=== PATIENT | male | born 1980 | race Caucasian/White ===

== ENCOUNTER → 2018-06-06 | Outpatient (CLI) | payer BC ==
--- NOTE | 2018-06-06 09:11 | CT ---
EXAMINATION TYPE: CT brain wo/w con DATE OF EXAM: 06/06/2018 COMPARISON: None HISTORY: 38-year-old male TIA, cranial nerve disorder, dizziness, deviated septum TECHNIQUE: Examination was done in axial plane without intravenous contrast. Coronal and sagittal r econstructions performed. CT DLP: 2273 mGycm Automated exposure control for dose reduction was used. FINDINGS: There is no evidence of acute intracranial hemorrhage, acute ischemic changes, mass, mass-effect, or extra-axial fluid collection. There is no effacement of cerebral sulci or basal subarachnoid cister ns. There is no hydrocephalus. There is no midline shift. Shannon-white matter distinction is preserv ed. No enhancing intracranial lesions. Dural venous sinuses are patent. Moderate mucosal thickening scattered throughout the ethmoid air cells. There is complete opacificati on of the partially visualized right maxillary sinus with reactive kathy-osteogenesis of the sinus wall s. There may be some bulging medially into the nasal cavity, refer to series 3 image 4. Leftward nasal septal deviation. The frontal, sphenoid, and visualized left maxillary sinuses remain pneumatized. Mastoid air cells are clear. Orbits and globes are intact. IMPRESSION: 1. No acute intracranial abnormality seen. No enhancing intracranial lesions. 2. Severe long-standing right maxillary sinus disease with complete opacification and reactive kathy-os teogenesis. There is bulging medially into the nasal cavity possibly from underlying polyposis or muc ocele. Clinically correlate. 3. Additional moderate chronic ethmoid sinus disease and leftward nasal septal deviation.
== END | disposition home or self-care (01) ==
LOC: RADCTMAIN 07:08
PROVIDERS: ATTEND Otolaryngology
DX: J32.0 Chronic maxillary sinusitis (principal); J32.2 Chronic ethmoidal sinusitis; J34.2 Deviated nasal septum; G52.9 Cranial nerve disorder, unspecified; R40.4 Transient alteration of awareness
CPT/HCPCS: 70470; Q9967

== ENCOUNTER 2018-07-05 07:49 | Emergency (ER) | payer BC, OTHER ==
[2018-07-05] MEDS ORDERED: LIDOCAINE 1% INJ 10MG/ML (20 ML MDV) SQ ONE (08:21)
--- NOTE | 2018-07-05 08:39 | ED ---
Wound/Laceration HPI - General Chief Complaint: Wound/Laceration Stated Complaint: Finger injury-[facility] Time Seen by Provider: 07/05/18 08:12 Source: patient, RN notes reviewed Mode of arrival: ambulatory Limitations: no limitations - History of Present Illness Initial Comments: 38-year-old male presents emergency department for left hand fourth digit finger injury. Patient states he was pushing a cart at work states that it pinched between another object. Patient states that it causes a laceration. He does complain of moderate discomfort in the distal portion of his finger. Patient's tetanus up-to-date within last 5 years. - Related Data Home Medications Medication Instructions Recorded Confirmed Amoxic-Pot Clav 875-125Mg 1 tab PO BID 07/05/18 07/05/18 [Augmentin 875-125] Omeprazole 40 mg PO DAILY 07/05/18 07/05/18 Varenicline [Chantix Continuing 1 mg PO BID 07/05/18 07/05/18 Pack] predniSONE 20 mg PO DAILY 07/05/18 07/05/18 Allergies Allergy/AdvReac Type Severity Reaction Status Date / Time No Known Allergies Allergy Verified 07/05/18 08:13 Review of Systems ROS Statement: Those systems with pertinent positive or pertinent negative responses have been documented in the HPI. ROS Other: All systems not noted in ROS Statement are negative. Past Medical History Past Medical History: No Reported History History of Any Multi-Drug Resistant Organisms: None Reported Past Surgical History: No Surgical Hx Reported Past Psychological History: No Psychological Hx Reported Smoking Status: Current every day smoker Past Alcohol Use History: Occasional Past Drug Use History: None Reported General Exam Limitations: no limitations General appearance: alert, in no apparent distress Head exam: Present: atraumatic, normocephalic, normal inspection Respiratory exam: Present: normal lung sounds bilaterally. Absent: respiratory distress, wheezes, rales, rhonchi, stridor Cardiovascular Exam: Present: regular rate, normal rhythm, normal heart sounds. Absent: systolic murmur, diastolic murmur, rubs, gallop, clicks Extremities exam: Present: other (Left hand fourth digit there is a 2 cm laceration, mild nail avulsion, finger has full range of motion moderate tenderness with palpation) Course Vital Signs 07/05/18 07:57 Temperature 97.6 F Pulse Rate 106 H Respiratory 16 Rate Blood Pressure 155/92 O2 Sat by Pulse 97 Oximetry Procedures - Laceration Laceration #1 Consent Obtained: verbal consent Indication: laceration Site: hand (Left hand fourth digit) Size (cm): 2 Description: irregular Depth: simple, single layer Anesthetic Used: lidocaine 1%, without epi Anesthesia Technique: local infiltration Amount (mls): 4 Pre-repair: wound explored, irrigated extensively, deep structures intact Type of Sutures: nylon Size of Sutures: 4-0 Number of Sutures: 4 Technique: simple, interrupted Patient Tolerated Procedure: well, no complications Medical Decision Making - Medical Decision Making 38-year-old male presented for left hand laceration. Patient's laceration was closed. X-ray was obtained which showed evidence of a tuft fracture. Patient was given IM injection of Ancef. Patient was started on Augmentin today for presurgical sinus antibiotics. Patient will continue this. Patient was placed in a finger splint and will follow-up with orthopedics, [facility]. Return parameters were discussed. Disposition Clinical Impression: Open fracture of finger of left hand, Laceration of finger, left Disposition: HOME SELF-CARE Condition: Stable Instructions (If sedation given, give patient instructions): Care For Your Stitches (ED), Laceration (ED) Additional Instructions: Have sutures removed in 10 days.Please return to the Emergency Department if symptoms worsen or any other concerns. Is patient prescribed a controlled substance at d/c from ED?: No Referrals: None,Stated [REFERRING] - 1-2 days Canelo Wynne MD [STAFF PHYSICIAN] - 1-2 days Time of Disposition: 09:09
[2018-07-05] MEDS ORDERED: ceFAZolin 1,000 MG VIAL IM STA (09:05)
[2018-07-05] MEDS ORDERED: ACET/COD 300 MG/30 MG STARTER PACK 6 TAB BTL PO STA (09:05)
--- NOTE | 2018-07-05 09:05 | XR ---
EXAMINATION TYPE: XR finger LT DATE OF EXAM: 07/05/2018 COMPARISON: NONE HISTORY: Pain TECHNIQUE: Three views are submitted. FINDINGS: There is a comminuted fracture involving the tuft of the distal phalanx fourth digit. Remaining osseo us structures intact. Soft tissue edema noted. IMPRESSION: 1. Comminuted displaced fracture tuft distal phalanx fourth digit
[2018-07-05 10:00] VITALS: BP 137/69; PULSE 89; RESP 18; TEMP 98.3
== END 2018-07-05 10:00 | disposition home or self-care (01) ==
LOC: EC 07:49
DX: S62.635B Displaced fracture of distal phalanx of left ring finger, initial encounter for open fracture (principal); S61.315A Laceration without foreign body of left ring finger with damage to nail, initial encounter; F17.200 Nicotine dependence, unspecified, uncomplicated; Z79.52 Long term (current) use of systemic steroids; Z79.899 Other long term (current) drug therapy; W23.1XXA Caught, crushed, jammed, or pinched between stationary objects, initial encounter; Y92.69 Other specified industrial and construction area as the place of occurrence of the external cause; Y99.0 Civilian activity done for income or pay
CPT/HCPCS: 99283; 12001; 96372; 73140; J0690; J2001

== ENCOUNTER → 2020-02-25 | Outpatient (CLI) | payer BC, OTHER | END | disposition home or self-care (01) | LOC: LABWHC1 12:34 | PROVIDERS: ATTEND Family Medicine | DX: Z20.828 Contact with and (suspected) exposure to other viral communicable diseases (principal) | CPT/HCPCS: U0003; C9803 ==

== ENCOUNTER → 2020-03-03 | Outpatient (CLI) | payer BC | END | disposition home or self-care (01) | LOC: LABWHC1 11:11 | PROVIDERS: ATTEND Family Medicine | DX: Z20.828 Contact with and (suspected) exposure to other viral communicable diseases (principal) | CPT/HCPCS: U0003; C9803 ==

== ENCOUNTER 2021-07-04 11:20 | Emergency (ER) | payer BC ==
--- NOTE | 2021-07-04 12:37 | XR ---
EXAMINATION TYPE: XR knee complete RT DATE OF EXAM: 07/04/2021 12:15 PM INDICATION: Patient age:Male; 41 years old; Reason for study: knee injury and pain; COMPARISON: None. TECHNIQUE: The Right knee(s) was examined in 3 projections. FINDINGS: No evidence of any acute osseous pathology, joint space narrowing, soft tissue swelling, or joint effusion is noted. Fabella is present. IMPRESSION: No acute osseous pathology.
--- NOTE | 2021-07-04 12:40 | ED ---
Lower Extremity Injury HPI - General Chief Complaint: Extremity Injury, Lower Stated Complaint: rt knee injury Time Seen by Provider: 07/04/21 11:31 Source: patient, family Mode of arrival: ambulatory Limitations: no limitations - History of Present Illness Initial Comments: Patient is a 41-year-old male presenting with chief complaint of right knee pain . Last night the patient tripped and his knee fell into a sheet of plywood. Patient states that he has little pain at rest, but he is unable to bear weight without extreme pain. Flexion is also painful for him. He has not taken any Motrin or Tylenol at home for pain control. He has not been icing or elevating the knee. He states the pain is localized to the medial side of the knee. States that there is some bruising. Denies confusion, locking, swelling, numbness, tingling, weakness. - Related Data Home Medications Medication Instructions Recorded Confirmed Amoxic-Pot Clav 875-125Mg 1 tab PO BID 07/05/18 07/05/18 [Augmentin 875-125] Omeprazole 40 mg PO DAILY 07/05/18 07/05/18 Varenicline [Chantix Continuing 1 mg PO BID 07/05/18 07/05/18 Pack] predniSONE [Deltasone] 20 mg PO DAILY 07/05/18 07/05/18 Allergies Allergy/AdvReac Type Severity Reaction Status Date / Time No Known Allergies Allergy Verified 07/04/21 11:24 Review of Systems ROS Statement: Those systems with pertinent positive or pertinent negative responses have been documented in the HPI. ROS Other: All systems not noted in ROS Statement are negative. Past Medical History Past Medical History: No Reported History History of Any Multi-Drug Resistant Organisms: None Reported Past Surgical History: No Surgical Hx Reported Past Psychological History: No Psychological Hx Reported Smoking Status: Current every day smoker Past Alcohol Use History: Occasional Past Drug Use History: None Reported General Exam Limitations: no limitations General appearance: alert, in no apparent distress Head exam: Present: atraumatic, normocephalic, normal inspection Eye exam: Present: normal appearance, PERRL, EOMI. Absent: scleral icterus, conjunctival injection, periorbital swelling Neck exam: Present: normal inspection Extremities exam: Present: normal capillary refill Right Upper Leg exam: Present: normal inspection Knee exam: Present: normal inspection, tenderness, ecchymosis. Absent: full ROM (Decreased secondary to pain), swelling, crepitus, dislocation, erythema, effusion Lower Leg exam: Present: normal inspection Neurovascular tendon exam: Absent: pulse deficit Neurological exam: Present: alert, oriented X3, CN II-XII intact Psychiatric exam: Present: normal affect, normal mood Skin exam: Present: warm, dry, intact, normal color. Absent: rash Course Vital Signs 07/04/21 11:20 Temperature 97.9 F Pulse Rate 108 H Respiratory 18 Rate Blood Pressure 143/86 O2 Sat by Pulse 98 Oximetry Medical Decision Making - Medical Decision Making Patient is a 41-year-old male presenting with chief complaint of right knee pain. Patient states that last night he tripped and fell causing his need fall into a sheet of plywood. He is now complaining of bruising and pain with ambulation and range of motion. Pain is localized to the medial aspect of the knee. On exam there is bruising observed over the inferior medial portions. Range of motion is decreased secondary to pain. There is no effusion, redness, or swelling. There tenderness on palpation of the medial aspect of the knee over the MCL. Pain with valgus stress. Knee x-ray shows no acute fracture or dislocation. Pain is likely related to MCL or meniscal injury. Follow-up with orthopedics. Use knee immobilizer and crutches. Take Motrin and Tylenol for pain relief as needed. Ice and elevate the knee as needed. Follow up with PCP in one week. Report back to ER if any worsening symptoms or new onset alarming symptoms. Educated the patient on return parameters. Answered all questions. Patient conveyed verbal understanding and agreed to the plan. I discussed this with case with my attending Dr. Calvillo - Radiology Data Radiology results: report reviewed, image reviewed Knee x-ray: No acute osseous pathology Disposition Clinical Impression: Knee sprain Disposition: HOME SELF-CARE Condition: Good Instructions (If sedation given, give patient instructions): Knee Sprain (ED), Knee Immobilizer (ED) Additional Instructions: Follow-up with orthopedics. Use knee immobilizer and crutches. Take Motrin and Tylenol as needed for pain control. Follow-up with PCP in one week. Report back to ER with any worsening symptoms or new onset alarm symptoms. Is patient prescribed a controlled substance at d/c from ED?: No Referrals: Alonzo Douglas MD [Primary Care Provider] - 04/02/22 Time of Disposition: 13:01
[2021-07-04 13:42] VITALS: BP 140/78; PULSE 92; RESP 16; TEMP 98.1
== END 2021-07-04 13:39 | disposition home or self-care (01) ==
LOC: EC 11:20
DX: S83.91XA Sprain of unspecified site of right knee, initial encounter (principal); F17.200 Nicotine dependence, unspecified, uncomplicated; W20.8XXA Other cause of strike by thrown, projected or falling object, initial encounter
CPT/HCPCS: 73562; 99283; L1830

== ENCOUNTER 2022-10-01 13:27 | Day surgery (SDC) | payer BC ==
[2022-09-28 15:45] VITALS: BMI 29.6
[~2022-10-01 13:27] MED LIST: LACTATED RINGERS 1,000 ML IV SCH
[2022-10-01 13:49] VITALS: TEMP 97.1
[2022-10-01] MEDS ORDERED: PROPOFOL 10 MG/ML 20 ML VIAL IV ONE (15:05)
--- NOTE | 2022-10-01 15:24 | P.PCN ---
Date of Procedure: 10/01/22 Procedure(s) Performed: BRIEF HISTORY: Patient is a 42-year-old, pleasant, white male scheduled for an upper endoscopy as a part of evaluation of long-standing history of GERD. Currently and omeprazole 20 mg twice daily and still has occasional heartburn and dysphagia. PROCEDURE PERFORMED: Esophagogastroduodenoscopy with biopsy. PREOPERATIVE DIAGNOSIS: GERD/intermittent dysphagia. IV sedation per anesthesia. PROCEDURE: After informed consent was obtained, the patient was brought into the endoscopy unit. IV sedation was administered by Anesthesia under continuous monitoring. Initially the Olympus GIF-140 video endoscope was inserted into the mouth. Esophagus intubated without any difficulty. It was gradually advanced into the stomach and duodenum and carefully examined. The bulb and the second part of the duodenum appeared normal. The scope at this time was withdrawn to the stomach, adequately insufflated with air, and upon careful examination, mucosa of the antrum had mild gastritis and biopsies were done from this area. Mucosa of the body, cardia and the fundus appeared normal. The scope was then withdrawn into the esophagus. The GE junction was located at 34 cm from the incisors. Moderate size hiatal hernia noted. The esophagus appeared normal. There were no erosions or ulcerations seen and the patient tolerated the procedure well. IMPRESSION: 1. Moderate size hiatal hernia but no evidence of esophagitis or Haney's esophagus 2. Mild antral gastritis. RECOMMENDATIONS: The findings of this examination were discussed with the patient as well as his family. He was advised to continue with omeprazole 20 mg twice daily and follow antireflux measures. He'll be seen in office in 3-4 weeks..
[2022-10-01 15:32] VITALS: RESP 16
[2022-10-01 15:54] VITALS: BP 131/80; PULSE 72
== END 2022-10-01 16:02 | disposition home or self-care (01) ==
LOC: ORWHC2ENDO 13:27
PROVIDERS: ATTEND Internal Medicine Gastroenterology
DX: K29.50 Unspecified chronic gastritis without bleeding (principal); K21.9 Gastro-esophageal reflux disease without esophagitis; K31.9 Disease of stomach and duodenum, unspecified; K44.9 Diaphragmatic hernia without obstruction or gangrene; F17.210 Nicotine dependence, cigarettes, uncomplicated; Z79.899 Other long term (current) drug therapy
CPT/HCPCS: 43239; J2704; 88305

== ENCOUNTER → 2022-10-11 | Outpatient (CLI) | payer BC ==
[2022-10-11 16:20] LABS: Blood Urea Nitrogen 15.7 mg/dL (9.0-27.0); Calcium 9.7 mg/dL (8.7-10.3); Carbon Dioxide 23.5 mmol/L (21.6-31.8); Chloride 106 mmol/L (96-109); Glucose 98 mg/dL (70-110); Potassium 4.6 mmol/L (3.5-5.5); Sodium 141 mmol/L (135-145)
[2022-10-11 18:23] LABS: HCT 47.2 % (39.6-50.0); HGB 15.7 d/dL (12.0-15.0); MCH 31.7 pg (27.0-32.0); MCHC 33.3 d/dL (32.0-37.0); MCV 95.4 FL (80.0-97.0); Mean Platelet Volume 11.1 FL (9.5-12.2); NRBC Per 100 WBC 0 X 10*3/uL (0.00-0.01); Platelet Count 237 X 10*3/uL (140-440); RBC 4.95 X 10*6/uL (4.40-5.60); RDW 13.4 % (11.5-14.5); WBC 7.52 X 10*3/uL (4.50-10.00)
== END | disposition home or self-care (01) ==
LOC: LABWHC1 10:00
PROVIDERS: ATTEND Nurse Practitioner Family
DX: K21.9 Gastro-esophageal reflux disease without esophagitis (principal)
CPT/HCPCS: 36415; 80048; 85027

== ENCOUNTER 2022-11-23 10:59 | Observation (INO) | payer BC ==
--- NOTE | 2022-11-23 11:45 | XR ---
EXAMINATION TYPE: XR chest 2V DATE OF EXAM: 11/23/2022 11:41 AM COMPARISON: None TECHNIQUE: XR chest 2V Frontal and lateral views of the chest. CLINICAL INDICATION:Male, 42 years old with history of Chest Pain; FINDINGS: Lungs/Pleura: There is no evidence of pleural effusion, focal consolidation, or pneumothorax. Pulmonary vascularity: Unremarkable. Heart/mediastinum: Cardiomediastinal silhouette is unremarkable. Musculoskeletal: No acute osseous pathology. IMPRESSION: No acute cardiopulmonary disease/process.
--- NOTE | 2022-11-23 11:48 | ED ---
Chest Pain HPI - General Source: patient, RN notes reviewed Mode of arrival: ambulatory Limitations: no limitations <Yane Jones - Last Filed: 11/23/22 11:45> <Lalit Hinson - Last Filed: 11/23/22 12:53> - General Chief Complaint: Chest Pain Stated Complaint: chest pain Time Seen by Provider: 11/23/22 11:01 - History of Present Illness Initial Comments: Patient is a 42-year-old male presenting to the emergency room for further evaluation of chest pain sent in [facility] by Dr. Prado for admission for cardiac catheterization to be completed tomorrow. He has a significant family cardiovascular history. He was evaluated in the emergency room in [place] with an EKG, chest x-ray and laboratory studies and was discharged home for follow-up locally. He continues to have chest pain is nonreproducible and squeezing like in nature with associated shortness of breath at times though he denies any at this time. He denies any headache, dizziness, diaphoresis, orthopnea, fevers or chills. Hissignificant past medical history. (Yane Jones) - Related Data Home Medications Medication Instructions Recorded Confirmed Omeprazole 40 mg PO BID 07/05/18 11/23/22 Allergies Allergy/AdvReac Type Severity Reaction Status Date / Time No Known Allergies Allergy Verified 11/23/22 12:08 Review of Systems ROS Other: All systems not noted in ROS Statement are negative. <Yane Jones - Last Filed: 11/23/22 11:45> ROS Other: All systems not noted in ROS Statement are negative. <Lalit Hinson - Last Filed: 11/23/22 12:53> ROS Statement: Those systems with pertinent positive or pertinent negative responses have been documented in the HPI. Past Medical History Past Medical History: GERD/Reflux, Hypertension History of Any Multi-Drug Resistant Organisms: None Reported Past Surgical History: Adenoidectomy Additional Past Surgical History / Comment(s): sinus,reconstruction of nail bed thumb left hand Past Anesthesia/Blood Transfusion Reactions: No Reported Reaction Past Psychological History: No Psychological Hx Reported Smoking Status: Current every day smoker Past Alcohol Use History: Occasional Past Drug Use History: None Reported - Past Family History Mother Family Medical History: No Reported History <Yane Jones - Last Filed: 11/23/22 11:45> General Exam Limitations: no limitations <Yane Jones - Last Filed: 11/23/22 11:45> - General Exam Comments Initial Comments: Visual Physical Exam Vital signs reviewed General: Well-appearing, nontoxic, no acute distress. Head: Normocephalic, atraumatic Eyes: PERRLA, EOMI ENT: Airway patent Chest: Nonlabored breathing Skin: No visual rash, normal skin tone Neuro: Alert and oriented 3 Musculoskeletal: No gross abnormalities I performed with the Quicknote portion Yane Jones COMMISSION SALES ASSOCIATE-c (Yane Jones) Course Vital Signs 11/23/22 11:19 Temperature 98.7 F Pulse Rate 65 Respiratory 18 Rate Blood Pressure 161/102 O2 Sat by Pulse 99 Oximetry Chest Pain MDM <Lalit Hinson Silas - Last Filed: 11/23/22 12:53> - MDM Was pt. sent in by a medical professional or institution (, PA, COMMISSION SALES ASSOCIATE, urgent care, hospital, or residential...) When possible be specific @ -No Did you speak to anyone other than the patient for history (EMS, parent, family, police, friend...)? What history was obtained from this source @ -No Did you review nursing and triage notes (agree or disagree)? Why? @ -I reviewed and agree with nursing and triage notes Were old charts reviewed (outside hosp., previous admission, EMS record, old EKG, old radiological studies, urgent care reports/EKG's, residential records)? Report findings @ -No old charts were reviewed Differential Diagnosis (chest pain, altered mental status, abdominal pain women, abdominal pain men, vaginal bleeding, weakness, fever, dyspnea, syncope, headache, dizziness, GI bleed, back pain, seizure, CVA, palpatations, mental health, musculoskeletal)? @ Differential Chest Pain: Stable Angina, Unstable Angina, STEMI, NSTEMI Aortic Dissection, Pneumothorax, Musculoskeletal, Esophageal Spasm GERD, Cholecystitis, Pancreatitis, Zoster, this is not meant to be an all-inclusive list. EKG interpreted by me (3pts min.). @EKG: Sinus rhythm rate of 63, CA interval 156, QRS duration 108, QTC 43, no ST segment elevation. X-rays interpreted by me (1pt min.). @ -Chest x-ray negative for acute cardiopulmonary findings. CT interpreted by me (1pt min.). @ -None done U/S interpreted by me (1pt. min.). @ -None done What testing was considered but not performed or refused? (CT, X-rays, U/S, labs)? Why? @ -None What meds were considered but not given or refused? Why? @ -None Did you discuss the management of the patient with other professionals (professionals i.e. , PA, COMMISSION SALES ASSOCIATE, lab, RT, psych nurse, manager social responsibility, product development technician, teacher, administrative services officer, case management specialist)? Give summary @ -No Was smoking cessation discussed for >3mins.? @ -No Was critical care preformed (if so, how long)? @ -No Were there social determinants of health that impacted care today? How? (Homelessness, low income, unemployed, alcoholism, drug addiction, transportation, low edu. Level, literacy, decrease access to med. care, snf, rehab)? @ -No Was there de-escalation of care discussed even if they declined (Discuss DNR or withdrawal of care, Hospice)? DNR status @ -No What co-morbidities impacted this encounter? (DM, HTN, Smoking, COPD, CAD, Cancer, CVA, ARF, Chemo, Hep., AIDS, mental health diagnosis, sleep apnea, morbid obesity)? @ -Current smoker, family history of coronary artery disease. Was patient admitted / discharged? Hospital course, mention meds given and route, prescriptions, significant lab abnormalities, going to OR and other pertinent info. @ Patient from the simplex operator office with request for admission, possible heart cath. EKG is sinus without ST segment elevation. Normal CBC, normal CMP, negative initial troponin. Patient will be admitted to internal medicine with cardiology on consult. Undiagnosed new problem with uncertain prognosis? @ -No Drug Therapy requiring intensive monitoring for toxicity (Heparin, Nitro, Insulin, Cardizem)? @ -No Were any procedures done? @ -No Diagnosis/symptom? @ Chest pain rule out Acute, or Chronic, or Acute on Chronic? Acute Uncomplicated (without systemic symptoms) or Complicated (systemic symptoms)? @ -default Side effects of treatment? @ -No Exacerbation, Progression, or Severe Exacerbation? @ -No Poses a threat to life or bodily function? How? (Chest pain, [place], NH, pneumonia, PE, COPD, DKA, ARF, appy, cholecystitis, CVA, Diverticulitis, Homicidal, Suicidal, threat to staff... and all critical care pts) @ -[Yes, chest pain (Lalit Hinson) Disposition <Yane Jones - Last Filed: 11/23/22 11:45> Is patient prescribed a controlled substance at d/c from ED?: No Time of Disposition: 12:53 <Lalit Hinson - Last Filed: 11/23/22 12:53> Clinical Impression: Chest pain Disposition: ADMITTED IP TO THIS HOSP Condition: Stable Referrals: None,Stated [Primary Care Provider] - 1-2 days
[2022-11-23 12:07] LABS: Basophils % (A) 1 %; Eosinophils # (A) 0.2 k/uL (0-0.7); Eosinophils % (A) 2 %; HCT 46.9 % (39.0-53.0); HGB 15.6 gm/dL (13.0-17.5); Lymphocytes # (A) 1.8 k/uL (1.0-4.8); Lymphocytes % (A) 20 %; MCH 32.5 pg (25.0-35.0); MCHC 33.4 g/dL (31.0-37.0); MCV 97.3 fL (80.0-100.0); Mean Platelet Volume 8.4; Monocytes # (A) 0.6 k/uL (0-1.0); Monocytes % (A) 6 %; Neutrophils # (A) 5.9 k/uL (1.3-7.7); Neutrophils % (A) 69 %; Platelet Count 201 k/uL (150-450); RBC 4.82 m/uL (4.30-5.90); RDW 13.3 % (11.5-15.5); WBC 8.6 k/uL (3.8-10.6)
[2022-11-23] MEDS ORDERED: NITROGLYCERIN SL TABS 0.4 MG TAB SUBLINGUAL PRN (12:16)
[2022-11-23] MEDS ORDERED: ALPRAZolam 0.5 MG TAB PO PRN (12:16)
[2022-11-23] MEDS ORDERED: ALPRAZolam 0.25 MG TAB PO PRN (12:16)
[2022-11-23 12:17] LABS: Partial Thromboplastin Time 25.4 sec (22.0-30.0); Prothrombin Time 10.5 sec (9.0-12.0)
--- NOTE | 2022-11-23 12:26 | P.CRDCN ---
History of Present Illness History of present illness: HISTORY OF PRESENT ILLNESS: This is a 42-year-old male with a past medical history significant for a strong family history of premature coronary artery disease. Patient follows in the office with Dr. Prado. We have been asked to see the patient in consultation for chest pain. Patient examined at the bedside in the emergency room. Patient was seen at [facility] office this morning for chest discomfort. He was evaluated by Dr. Prado who recommended he come to the emergency room to be admitted for observation and cardiac catheterization tomorrow. [place] and was having chest pain while [place] on the boat. Patient reports he was short of breath as well. The patients states he was diaphoretic. Patient was evaluated at [facility] and was ruled out for acute myocardial infarction. Patient states he had an EKG and lab work performed there. No echo or stress testing was performed. * EKG performed at the office reveals sinus mechanism with early repolarization in the inferior leads * Chest xray negative for acute process * Laboratory data: WBC 8.6. Hemoglobin 15.6. Platelet count 201. INR 1.0. Basic metabolic panel not resulted. * Current home cardiac medications include none REVIEW OF SYSTEMS: At the time of my exam: CONSTITUTIONAL: Denies fever or chills. HEENT: Denies blurred vision, vision changes, or eye pain. Denies hemoptysis CARDIOVASCULAR: Denies chest pain. Denies orthopnea. Denies PND. Denies palpitations RESPIRATORY: Denies shortness of breath. GASTROINTESTINAL: Denies abdominal pain. Denies nausea or vomiting. HEMATOLOGIC: Denies bleeding disorders. GENITOURINARY: Denies any blood in urine. SKIN: Denies pruitis. Denies rash. PHYSICAL EXAM: VITAL SIGNS: Reviewed. GENERAL: Well-developed in no acute distress. HEENT: Head is normocephalic. Pupils are equal, round. Sclerae anicteric. Mucous membranes of the mouth are moist. Neck supple. No JVD or thyromegaly LUNGS: Respirations even and unlabored. Lungs essentially clear to auscultation bilaterally. HEART: Regular rate and rhythm. S1 and S2 heard. ABDOMEN: Soft. Nondistended. Nontender. EXTREMITIES: Normal range of motion. No clubbing or cyanosis. Peripheral pulses intact. No lower extremity edema NEUROLOGIC: Awake and alert. Oriented x 3. ASSESSMENT: Chest pain Family history of premature coronary artery disease PLAN: Trend troponins Obtain 2-D echo to assess cardiac structure and function Begin aspirin 81 mg daily and atorvastatin 80 mg at night Nothing by mouth at midnight Patient to undergo cardiac catheterization tomorrow with Dr. Cardenas Further recommendations pending patient's course Nurse practitioner note has been reviewed by physician. Signing provider agrees with the documented findings, assessment, and plan of care. Past Medical History Past Medical History: GERD/Reflux, Hypertension History of Any Multi-Drug Resistant Organisms: None Reported Past Surgical History: Adenoidectomy Additional Past Surgical History / Comment(s): sinus,reconstruction of nail bed thumb left hand Past Anesthesia/Blood Transfusion Reactions: No Reported Reaction Past Psychological History: No Psychological Hx Reported Smoking Status: Current every day smoker Past Alcohol Use History: Occasional Past Drug Use History: None Reported - Past Family History Mother Family Medical History: No Reported History Medications and Allergies Home Medications Medication Instructions Recorded Confirmed Type Omeprazole 40 mg PO BID 07/05/18 11/23/22 History Allergies Allergy/AdvReac Type Severity Reaction Status Date / Time No Known Allergies Allergy Verified 11/23/22 12:08 Physical Exam Vitals: Vital Signs Temp Pulse Resp BP Pulse Ox 11/23/22 11:19 98.7 F 65 18 161/102 99 Intake and Output 11/22/22 11/23/22 11/23/22 22:59 06:59 14:59 Other: Weight 77.564 kg Results 11/23/22 11:49 Coagulation 11/23/22 Range/Units 11:49 PT 10.5 (9.0-12.0) sec APTT 25.4 (22.0-30.0) sec CBC 11/23/22 Range/Units 11:49 WBC 8.6 (3.8-10.6) k/uL RBC 4.82 (4.30-5.90) m/uL Hgb 15.6 (13.0-17.5) gm/dL Hct 46.9 (39.0-53.0) % Plt Count 201 (150-450) k/uL Current Medications Generic Name Dose Route Start Last Admin Trade Name Freq PRN Reason Stop Dose Admin Alprazolam 0.25 mg 11/23/22 12:16 Alprazolam 0.25 Mg Tab PO Q6HR PRN Mild Anxiety Alprazolam 0.5 mg 11/23/22 12:16 Alprazolam 0.5 Mg Tab PO Q6HR PRN Moderate Anxiety Aspirin 325 mg 11/24/22 05:00 Aspirin 325 Mg Tab PO 11/24/22 05:01 ONCE ONE Atorvastatin Calcium 80 mg 11/24/22 05:00 Atorvastatin 80 Mg Tab PO 11/24/22 05:01 ONCE ONE Heparin Sodium (Porcine) 10, 1,001 mls @ 999 mls/hr 11/24/22 07:00 000 unit/ Sodium Chloride IRRIGATION 11/24/22 23:00 ONCE PRN INTRA-OP Heparin Sodium (Porcine) 2,500 250.5 mls @ 250 mls/hr 11/24/22 07:00 unit/ Sodium Chloride IRRIGATION 11/24/22 23:00 ONCE PRN INTRA-OP Sodium Chloride 1,000 ml/ IV 1,000 mls @ 77.564 mls/hr 11/23/22 23:00 Solution IV .[id number] KELSIE 1 ML/KG/HR Nitroglycerin 0.4 mg 11/23/22 12:16 Nitroglycerin Sl Tabs 0.4 Mg Tab SUBLINGUAL Q5M PRN Chest Pain Intake and Output 11/22/22 11/23/22 11/23/22 22:59 06:59 14:59 Other: Weight 77.564 kg Patient Weight 11/24/22 06:59 Weight 77.564 kg 11/23/22 11:49
[2022-11-23 12:28] LABS: ALT 40 U/L (4-49); AST 34 U/L (17-59); African American GFR (CKD) >90 (>60 ml/min/1.73 sqM); Albumin 4.5 g/dL (3.5-5.0); Alkaline Phosphatase 82 U/L (38-126); Anion Gap 8 mmol/L; Blood Urea Nitrogen 17 mg/dL (9-20); Calcium 9.5 mg/dL (8.4-10.2); Carbon Dioxide 27 mmol/L (22-30); Chloride 106 mmol/L (98-107); Glucose 85 mg/dL (74-99); Non-African American GFR(CKD) >90 (>60 ml/min/1.73 sqM); Potassium 4.5 mmol/L (3.5-5.1); Sodium 141 mmol/L (137-145); Total Bilirubin 0.5 mg/dL (0.2-1.3); Total Protein 7.6 g/dL (6.3-8.2)
[2022-11-23] MEDS ORDERED: NALOXONE 0.4 MG/ML 1 ML VIAL IV PRN (12:44)
[2022-11-23 14:08] LABS: Glucose,Whole Blood 116 mg/dL (70-110)
--- NOTE | 2022-11-23 17:48 | CA ---
Transthoracic Echo Report Name: Lalit Kelsey Age: 42 Gender: M : 1980 Exam Date: 11/23/2022 13:15 Exam Location: [place] [facility] Ht (in): 65 Wt (lb): 171 Ordering Physician: María Hand Attending/Referring Phys: [id number], Peace Patient Registration Clerk Alberta Gonsalez [facility] Procedure CPT: Indications: LV function, CP Cardiac Hx: Technical Quality: Fair Contrast 1: Total Dose (mL): Contrast 2: Total Dose (mL): MEASUREMENTS (Male / Female) Normal Values 2D ECHO LV Diastolic Diameter PLAX 4.6 cm 4.2 - 5.9 / 3.9 - 5.3 cm LV Systolic Diameter PLAX 3.4 cm IVS Diastolic Thickness 0.8 cm 0.6 - 1.0 / 0.6 - 0.9 cm LVPW Diastolic Thickness 0.9 cm 0.6 - 1.0 / 0.6 - 0.9 cm LV Relative Wall Thickness 0.4 M-MODE Aortic Root Diameter MM 2.8 cm LA Systolic Diameter MM 3.6 cm LA Ao Ratio MM 1.3 AV Cusp Separation MM 2.2 cm DOPPLER AV Peak Velocity 119.2 cm/s AV Peak Gradient 5.7 mmHg AV Mean Velocity 86.0 cm/s AV Mean Gradient 3.2 mmHg AV Velocity Time Integral 24.1 cm LVOT Peak Velocity 107.0 cm/s LVOT Peak Gradient 4.6 mmHg LVOT Velocity Time Integral 21.7 cm Mitral E Point Velocity 70.7 cm/s Mitral A Point Velocity 42.9 cm/s Mitral E to A Ratio 1.6 MV Deceleration Time 226.4 ms LV E' Lateral Velocity 15.8 cm/s Mitral E to LV E' Lateral Ratio 4.5 LV E' Septal Velocity 9.3 cm/s Mitral E to LV E' Septal Ratio 7.6 Right Atrial Pressure 3.0 mmHg FINDINGS Left Ventricle Normal Left ventricular size, wall thickness, systolic function with no obvious regional wall motion abnormalities. Left ventricular ejection fraction is estimated at 50-55%. Low normal systolic function. Right Ventricle Mild right ventricular dilatation. Unable to estimate the right ventricular systolic pressure. Right Atrium Normal right atrial size. Left Atrium Normal left atrial size. Mitral Valve Structurally normal mitral valve. Mild mitral regurgitation. Aortic Valve Trileaflet aortic valve. No aortic regurgitation. Tricuspid Valve Structurally normal tricuspid valve. No tricuspid regurgitation. Pulmonic Valve Structurally normal pulmonic valve. No pulmonic regurgitation. Pericardium No pericardial effusion. Aorta Normal size aortic root. CONCLUSIONS Normal LV function Mild mitral regurgitation Previewed by: Dr. Chris Cardenas MD (Electronically Signed) Final Date: 23 November 2022 17:47
--- NOTE | 2022-11-23 19:04 | P.HPIM ---
History of Present Illness This is a pleasant 42 years old male with past medical history of hypertension and GERD Patient presents with chest pain since Tuesday morning days ago where his chest pain comes and goes, centrally radiating to the left side moderate severity associated with little dyspnea with no significant relieving or precipitating factors. Currently chest pain almost results when I saw the patient and emergency room The patient was tachycardic at his doctor office, Dr. Maria who referred him to the hospital for possible cardiac cath. Patient denies any coughing or headache or dizziness. He smokes about 1 pack per day and he was counseled to quit but he agrees and applies nicotine patch as he is ALLERGIC to it. Occasional alcohol no illicit drugs. No abdominal pain diarrhea or vomiting. No urinary or new neurological complaints Review of Systems Review of systems CONSTITUTIONAL: No fever, no malaise, no fatigue. HEENT: No recent visual problems or hearing problems. Denied any sore throat. CARDIOVASCULAR: No orthopnea, PND, no palpitations, no syncope. PULMONARY: No shortness of breath, no cough, no hemoptysis. GASTROINTESTINAL: No diarrhea, no nausea, no vomiting, no abdominal pain. Normoactive bowel sounds. NEUROLOGICAL: No headaches, no weakness, no numbness. HEMATOLOGICAL: Denies any bleeding or petechiae. GENITOURINARY: Denies any burning micturition, frequency, or urgency. MUSCULOSKELETAL/RHEUMATOLOGICAL: Denies any joint pain, swelling, or any muscle pain. ENDOCRINE: Denies any polyuria or polydipsia. Past Medical History Past Medical History: GERD/Reflux, Hypertension History of Any Multi-Drug Resistant Organisms: None Reported Past Surgical History: Adenoidectomy Additional Past Surgical History / Comment(s): sinus,reconstruction of nail bed thumb left hand Past Anesthesia/Blood Transfusion Reactions: No Reported Reaction Past Psychological History: No Psychological Hx Reported Smoking Status: Current every day smoker Past Alcohol Use History: Occasional Past Drug Use History: None Reported - Past Family History Mother Family Medical History: No Reported History Medications and Allergies Home Medications Medication Instructions Recorded Confirmed Type Omeprazole 40 mg PO BID 07/05/18 11/23/22 History Allergies Allergy/AdvReac Type Severity Reaction Status Date / Time No Known Allergies Allergy Verified 11/23/22 12:08 Physical Exam Vitals: Vital Signs Temp Pulse Resp BP Pulse Ox 11/23/22 14:12 98.3 F 61 18 104/68 98 08/15/23 11:19 98.7 F 65 18 161/102 99 Intake and Output 11/23/22 11/23/22 11/23/22 06:59 14:59 22:59 Other: Weight 77.564 kg GENERAL: The patient is alert and oriented x3, not in any acute distress. Well developed, well nourished. HEENT: Pupils are round and equally reacting to light. EOMI. No scleral icterus. No conjunctival pallor. Normocephalic, atraumatic. No pharyngeal erythema. No th yromegaly. CARDIOVASCULAR: S1 and S2 present. No murmurs, rubs, or gallops. PULMONARY: Chest is clear to auscultation, no wheezing , no crackles. ABDOMEN: Soft, nontender, nondistended, normoactive bowel sounds. No palpable organomegaly. MUSCULOSKELETAL: No joint swelling or deformity. EXTREMITIES: No cyanosis, clubbing, or pedal edema. NEUROLOGICAL: Gross neurological examination did not reveal any focal deficits. SKIN: No rashes. no petechiae. Results CBC & Chem 7: 11/23/22 11:49 11/23/22 11:49 Labs: Abnormal Lab Results - Last 24 Hours (Table) 11/23/22 Range/Units 14:07 POC Glucose (mg/dL) 116 H (70-110) mg/dL Assessment and Plan Assessment: Chest pain, rule out cardiac causes, rule out unstable angina versus others Nicotine dependence Hypertension History of gastroesophageal reflux disease Plan: Serial troponin Continue with aspirin Patient was started on heparin drip by production corrugator Cardiology consult Labs and medication were reviewed.. Continue same treatment. Continue with symptomatic treatment. Resume home medication. Monitor labs and vitals. DVT and GI prophylaxis. Further recommendations as per clinical course of the patient DVT prophylaxis: heparin GI Prophylaxis: Pepcid PT/OT: Pending Prognosis is guarded
[2022-11-23] MEDS ORDERED: ATORVASTATIN 80 MG TAB PO SCH (21:00)
[2022-11-23] MEDS: PANTOPRAZOLE 40 MG TABLET PO SCH (21:18)
[2022-11-23] MEDS: NITROGLYCERIN OINT 1 INCH/GM PACKET TOPICAL SCH (21:18)
[2022-11-23] MEDS ORDERED: SODIUM CHLORIDE 0.9% 1,000 ML in EMPTY BAG 1 BAG IV SCH (23:00)
[2022-11-24 02:44] VITALS: TEMP 97.9
[2022-11-24] MEDS ORDERED: ASPIRIN 325 MG TAB PO ONE (05:00)
[2022-11-24] MEDS ORDERED: ATORVASTATIN 80 MG TAB PO ONE (05:00)
[2022-11-24] MEDS: NITROGLYCERIN OINT 1 INCH/GM PACKET TOPICAL SCH (05:30)
[2022-11-24] MEDS: PANTOPRAZOLE 40 MG TABLET PO SCH (06:39)
[2022-11-24] MEDS ORDERED: HEPARIN SODIUM,PORCINE 10,000 UNIT in SODIUM CHLORIDE 0.9% 1,000 ML IRRIGATION PRN (07:00)
[2022-11-24] MEDS ORDERED: HEPARIN SODIUM,PORCINE (1 ML) 2,500 UNIT in SODIUM CHLORIDE 0.9% 250 ML IRRIGATION PRN (07:00)
[2022-11-24] MEDS ORDERED: ASPIRIN 81 MG PO SCH (09:00)
[2022-11-24] MEDS ORDERED: HEPARIN SODIUM 1,000 UN/ML (10ML VL) ONE (10:11)
[2022-11-24] MEDS ORDERED: VERAPAMIL 2.5 MG/ML 2 ML AMP ONE (10:11)
[2022-11-24] MEDS ORDERED: fentaNYL (PF) 50 MCG/ML 2 ML AMP ONE (10:12)
[2022-11-24] MEDS ORDERED: IV FLUID CONTINUATION 700 ML IV ONE (10:30)
[2022-11-24] MEDS: MIDAZOLAM 2 MG/2 ML VIAL IVP ONE ×2 (10:45→11:09)
[2022-11-24] MEDS ORDERED: fentaNYL (PF) 50 MCG/ML 2 ML AMP IVP ONE (10:45)
[2022-11-24] MEDS ORDERED: LIDOCAINE 2% (PF) 20 MG/ML 5 ML VIAL SQ ONE (10:55)
[2022-11-24] MEDS ORDERED: LIDOCAINE 1% INJ 10MG/ML (20 ML MDV) ONE (11:01)
[2022-11-24] MEDS ORDERED: VERAPAMIL SYRINGE (5 MG/10 ML) INTRAARTER ONE (11:06)
[2022-11-24] MEDS ORDERED: HEPARIN SODIUM 1,000 UN/ML (10ML VL) IV ONE (11:09)
[2022-11-24] MEDS ORDERED: IOPAMIDOL-370 200ML BTL INJ ONE (11:20)
[2022-11-24] MEDS ORDERED: RX INFO: IV CONTRAST WAS GIVEN 1 EACH MISC MISCELLANE PRN (11:31)
[2022-11-24] MEDS ORDERED: SODIUM CHLORIDE 0.9% 1,000 ML IV SCH (11:45)
--- NOTE | 2022-11-24 11:53 | CC ---
CARDIAC CATHETERIZATION REPORT INDICATION: Unstable angina. PROCEDURE NOTE: After obtaining informed consent, left heart catheterization, coronary angiogram are performed via the right radial artery using standard Pooja catheters. The patient tolerated the procedure well without any obvious immediate complications. A TR band was used for hemostasis at the end of the procedure. The patient received moderate conscious sedation. Total sedation time was 27 minutes. Right radial artery access was obtained using Seldinger technique. Catheters and wires were floated into the ascending aorta under fluoroscopic guidance. The patient tolerated the procedure well without any obvious immediate complications. FINDINGS: 1. Hemodynamics: Left ventricular end-diastolic pressure is 8 to 10 . There is no significant gradient across the aortic valve. 2. Left ventriculogram: Not performed. 3. Angiographic data: a.Left main coronary artery: Normal-sized vessel. It is free of stenosis. Divides into left anterior descending coronary artery and circumflex coronary artery. LAD and its branches, circumflex coronary artery and its branches are free of significant stenosis. b.Right coronary artery is a large codominant vessel and is free of significant disease. CONCLUSIONS: 1. Normal coronary arteries. 2. Normal left ventricular end-diastolic pressure. PLAN: I reviewed angiographic data with the patient and told him that his chest discomfort is noncardiac in origin and his management is going to be in the form of risk factor modification, in particular smoking cessation. MMODL / IJN: [id number] /
[2022-11-24 13:40] VITALS: RESP 16
[2022-11-24 16:02] VITALS: BP 124/80; PULSE 57
--- NOTE | 2022-11-24 21:57 | P.DS ---
Providers Date of admission: 11/23/22 13:32 Attending physician: Song Layne MD Consults: 11/23/22 12:44 Consult Physician Routine Consulting Provider: Andrez Prado Consult Reason/Comments: CP Do you want consulting provider notified?: Already Contacted Primary care physician: Stated None Hospital Course: Diagnoses: Chest pain, most likely musculoskeletal. Negative d-dimer and negative cardiac cath. History of GERD History of hypertension, currently blood pressure is controlled with no medication Hospital course: This is a pleasant 42 years old male with past medical history of hypertension and GERD Patient presents with chest pain since Tuesday morning. Patient evaluated by forklift truck mechanic and had normal cardiac cath. D-dimer was negative at 0.19. Chest pain was minimal discharge. Patient denies dyspnea coughing or any other new complaints. Patient was cleared for discharge by forklift truck mechanic. Problems and management plan were discussed with the patient and he verbalized understanding and acceptance Patient was found stable and can be discharged home however he needs follow-up as an outpatient. Patient was instructed to follow up with PCP within one week and patient agrees Patient was instructed to follow up with his forklift truck mechanic Dr. Maria in 1 week after discharge and he agrees Physical exam Gen: patient is a AAOx3, no distress CVS: S1-S2, RRR, no murmur Lungs: B/L CTA, no wheezing Abdomen: soft, no distention, no tenderness, positive bowel sounds Extremity: no leg edema or induration Time spent more than 35 minutes Patient Condition at Discharge: Stable Plan - Discharge Summary New Discharge Prescriptions: Continue Omeprazole 40 mg PO BID Discharge Medication List Omeprazole 40 mg PO BID 07/05/18 [History] Follow up Appointment(s)/Referral(s): Andrez Prado MD [STAFF PHYSICIAN] - 1 Week (OFFICE WILL CALL YOU WITH APPOINTMENT DATE AND TIME) None,Stated [Primary Care Provider] - 1-2 days Patient Instructions/Handouts: After Radial Heart Catheterization (GEN) Activity/Diet/Wound Care/Special Instructions: heart healthy diet activity is restricted till you see your doctor Discharge Disposition: HOME SELF-CARE
== END 2022-11-24 16:55 | disposition home or self-care (01) ==
LOC: EC 10:59 → 6NMEDSUR 13:32
PROVIDERS: ADMIT Internal Medicine; ATTEND Internal Medicine
DX: R07.89 Other chest pain (principal); K21.9 Gastro-esophageal reflux disease without esophagitis; I10 Essential (primary) hypertension; F17.200 Nicotine dependence, unspecified, uncomplicated; Z79.899 Other long term (current) drug therapy; Z82.49 Family history of ischemic heart disease and other diseases of the circulatory system
CPT/HCPCS: 99285; 36415; 93005; 93306; 93458; 85379; 80053; 83735; 84484; 85025; 85610; 85730; 71046; G0378 ×2; C1769 ×2; C1894; J2250; J3010; J1644; J2001; Q9967

== ENCOUNTER → 2022-12-04 | Outpatient (CLI) | payer BC ==
[2022-12-05 09:54] LABS: Chol/HDL Ratio 4.72 Ratio; VLDL Calculation 19.42 mg/dL (5.00-40.00)
== END | disposition home or self-care (01) ==
LOC: LABWHC1 08:59
PROVIDERS: ATTEND Internal Medicine Clinical Cardiac Electrophysiology
DX: E78.5 Hyperlipidemia, unspecified (principal)
CPT/HCPCS: 36415; 80061